=== PATIENT | male | born 1970 | race Caucasian/White ===

== ENCOUNTER 2024-09-07 04:00 | Observation (INO) ==
--- NOTE | 2024-09-07 04:12 | ED Physician Documentation ---
History of Present Illness Stated complaint Stated Complaint: DIZZY Chief complaint Chief Complaint: Neuro History obtained from History obtained from: Patient Additonal information Additional information: 54yM with recent right ankle fracture p/w lightheadedness tonight while at rest lying in bed. patient woke and then at 2:54 am developed ringing in ears, lightheadedness and started sweating. he called 911 and upon ems arrival the symptoms had resolved. patient was found to be hypotensive with bp 79/50. He received 750cc ivf en route. patient states he started hctz and lisinopril for high bp a couple months ago. he normally takes adderall but has not been taking this week. he started taking oxycodone this week for pain for his ankle. he took oxy at 8pm and 2am. denies fever, chills, n/v/d, abdominal pain, cp, soa, fnd. Collateral info obtained from [place]: Patient has hx panic attacks and anxiety. He was in his workshop at their home several days ago and had an unwitnessed episode of which he does not remember, but ended up on the floor with a broken and dislocated ankle. he was seen at outside hospital but did not have bloodwork done. states he only had traumatic workup for ankle fracture. Meds/Allgy Home Medications Ambulatory Orders Medication Instructions Recorded Confirmed atorvastatin 10 mg tablet (Lipitor) 10 mg PO QDAY #30 tabs 06/26/24 06/26/24 clonidine HCl 0.1 mg tablet 0.3 mg (3 x 0.1 mg) PO QPM #90 tabs 06/26/24 06/26/24 hydroxyzine pamoate 25 mg capsule 25 - 50 mg (1 - 2 x 25 mg) PO BID 06/26/24 06/26/24 (Vistaril) PRN anxiety, itching, and/or insomnia #120 caps propranolol 10 mg tablet 10 mg PO TID PRN anxiety, racing 06/26/24 06/26/24 heart, social situations #90 tabs lisinopril 20 1 tab PO QDAY #30 tabs 08/06/24 08/06/24 mg-hydrochlorothiazide 12.5 mg tablet dextroamphetamine-amphetamine 5 mg 5 mg PO BID #30 tabs 08/28/24 tablet Allergies Allergies Allergy/AdvReac Type Severity Reaction Status Date / Time No Known Drug Allergies Allergy Verified 09/07/24 04:14 PFSH Active Problems All Active Problems (Updated 09/07/24 @ 04:18 by Natalia Vences MD) Dizziness (Acute) Encounter for long-term current use of medication (Acute) Hypercholesterolemia (Acute) Hypertension (Acute) ADHD (attention deficit hyperactivity disorder), combined type (Acute) Generalized anxiety disorder with panic attacks (Acute) Family History Family History (Updated 09/07/24 @ 06:47 by Nimo Hill RN) Brother Sudden cardiac arrest Paternal grandfather Sudden cardiac arrest Social History Social History Smoking Status: Former smoker Do you vape?: No Patient requests smoking cessation consult: No Living arrangement: At home Marital Status: Living Condition: With spouse/s.o. Support Person: Yes Relationship: Level: Independent Do you feel safe in your home environment?: Yes Suffered physical, verbal, emotional, or financial abuse?: No History of Abuse: No Frequency: Weekly (3-4x/wk) Substance Use: cannabis (any form) Retired: No Are you following a diet prescribed by a doctor: No Are you following a special diet: No Exam Constitutional normal general appearance, no apparent distress and average body habitus HENMT normocephalic and head/scalp atraumatic Eyes PERRL Chest inspection of chest normal Respiratory breath sounds equal bilaterally, normal respiratory effort and clear to auscultation bilaterally Cardiovascular normal heart rate noted and regular rhythm noted Gastrointestinal abdomen normal to inspection, abdomen soft to palpation and nontender to palpation Genitourinary no CVA tenderness Extremities normal to inspection Neurology GCS 15 Psychiatry mental status grossly normal Skin skin color normal Results Vitals Vitals: Vital Signs - 24 hr 09/07/24 04:06 09/07/24 04:09 09/07/24 04:14 Temperature 36.2 C L 36.2 C L Temperature Source Tympanic Pulse Rate 86 77 Pulse Rate [Sitting] Pulse Rate [Standing] Pulse Rate [Supine] Respiratory Rate 16 16 Blood Pressure 134/87 H 138/87 H Blood Pressure [Sitting] Blood Pressure [Standing] Blood Pressure [Supine] O2 Saturation 99 98 O2 Source Room air Room air Pain Intensity 0 0 09/07/24 04:17 09/07/24 05:39 09/07/24 05:47 Temperature Temperature Source Pulse Rate 69 68 Pulse Rate [Sitting] 78 Pulse Rate [Standing] 96 Pulse Rate [Supine] 77 Respiratory Rate 16 20 Blood Pressure 116/75 101/73 Blood Pressure [Sitting] 128/87 Blood Pressure [Standing] 134/87 H Blood Pressure [Supine] 138/89 H O2 Saturation 97 96 O2 Source Room air Room air Pain Intensity 09/07/24 06:42 Temperature Temperature Source Pulse Rate 75 Pulse Rate [Sitting] Pulse Rate [Standing] Pulse Rate [Supine] Respiratory Rate 16 Blood Pressure 107/69 Blood Pressure [Sitting] Blood Pressure [Standing] Blood Pressure [Supine] O2 Saturation 98 O2 Source Room air Pain Intensity Oxygen O2 Source Room air EKG (time done) 0428: EKG releavant findings:: EKG personally interpreted by author of this note. Relevant findings are: Rate: Rate (enter#) (77) Rhythm: NSR [place]: Normal Intervals: Normal [place] QRS: QRS normal Ischemia: Normal ST segments Other comments: Other comments (Q waves inferior leads) 0547: EKG releavant findings:: EKG personally interpreted by author of this note. Relevant findings are: Rate: Rate (enter#) (72) Rhythm: NSR [place]: LAD Intervals: Normal [place] QRS: QRS normal Ischemia: Normal ST segments Labs Labs: Laboratory Tests 09/07/24 09/07/24 09/07/24 05:16 05:45 05:57 WBC 11.3 H RBC 5.12 Hgb 14.4 Hct 42.7 MCV 83.4 MCH 28.1 MCHC 33.7 RDW 13.5 Plt Count 265 MPV 10.0 Neut # (Auto) 9.8 H Lymph # (Auto) 0.8 L [place] # (Auto) 0.5 Eos # (Auto) 0.1 Baso # (Auto) 0.0 Absolute Nucleated RBC 0.00 Nucleated RBC % 0.0 Sodium 134 L Potassium 4.0 Chloride 102 Carbon Dioxide 27 Anion Gap 5.0 L BUN 21 H Creatinine 1.1 Estimated GFR (MDRD) 70 L Glucose 136 H POC Whole Bld Glucose 134 Calcium 8.3 L Magnesium 1.9 Total Bilirubin 0.6 AST 12 ALT 14 Alkaline Phosphatase 56 Ammonia 21.2 Troponin I High Sens 4.0 Total Protein 6.6 Albumin 3.7 Globulin 2.9 Albumin/Globulin Ratio 1.3 Lipase 23 TSH 1.33 Salicylates < 1.5 Acetaminophen 0.4 Ethyl Alcohol < 10.0 PD Medical Decision Making ED course ED course: 54yM with pmh ankle fracture p/w dizziness, found to be hypotensive in the field. ivf provided with improvement. plan to assess cxr, ekg, labwork and reevaluate. Note that patient had brief episode of unresponsiveness witnessed by around 5:40am. he had no acute events on the manager monitoring and BP and fingerstick glucose was normal at that time. staff respiratory therapist witnessed the latter part of the episode, with patient repeatedly gazing from left to right and then after a moment reposnding clearly with his name, and able to recount his location and the year. CT head, additional tox labs, ammonia level were added on. add on tests were negative for pathology. Note that patient states he has family history of sudden in brother and paternal grandfather in 40s. patient endorsed to Dr. Godinez at 7am shift change. Discharge Plan Discharge Condition: Fair Clinical Impression: Dizziness Prescriptions: No Action dextroamphetamine-amphetamine 5 mg tablet 5 mg PO BID Qty: 30 0RF Rx Instructions: Take in the morning and midday. Avoid taking within 8hrs of bedtime, try to administer doses approx. 4-6 hours apart. Missed dose/s okay. propranolol 10 mg tablet 10 mg PO TID PRN (Reason: anxiety, racing heart, social situations ) Qty: 90 2RF hydroxyzine pamoate [Vistaril] 25 mg capsule 25 - 50 mg PO BID PRN (Reason: anxiety, itching, and/or insomnia ) Qty: 120 2RF atorvastatin [Lipitor] 10 mg tablet 10 mg PO QDAY Qty: 30 2RF clonidine HCl 0.1 mg tablet 0.3 mg PO QPM Qty: 90 2RF lisinopril-hydrochlorothiazide 20-12.5 mg tablet 1 tab PO QDAY Qty: 30 2RF Print Language: Divehi Stand Alone Forms: PCP List
[2024-09-07] MEDS: SODIUM CHLORIDE 0.9% 1,000 ML IV STA (04:21)
[2024-09-07 05:32] LABS: BASOPHILS % (AUTO) 0.2 %; EOSINOPHILS # (AUTO) 0.1 10^3/uL (0.0-0.7); EOSINOPHILS % (AUTO) 0.4 %; HCT - HEMATOCRIT 42.7 % (42.0-52.0); HGB - HEMOGLOBIN 14.4 g/dL (14.0-18.0); LYMPHOCYTES # (AUTO) 0.8 10^3/uL (1.5-3.5); LYMPHOCYTES % (AUTO) 7.5 %; MEAN CORPUSCULAR HEMOGLOBIN 28.1 pg (27.0-31.0); MEAN CORPUSCULAR HGB CONC 33.7 g/dL (32.0-36.0); MEAN CORPUSCULAR VOLUME 83.4 fL (80.0-94.0); MONOCYTES # (AUTO) 0.5 10^3/uL (0.0-1.0); MONOCYTES % (AUTO) 4.8 %; NEUTROPHILS # (AUTO) 9.8 10^3/uL (1.5-6.6); NEUTROPHILS % (AUTO) 86.7 %; PLT - PLATELET COUNT 265 10^3/uL (130-450); RED BLOOD COUNT 5.12 10^6/uL (4.70-6.10); RED CELL DISTRIBUTION WIDTH 13.5 % (12.0-15.0); WHITE BLOOD COUNT 11.3 x10^3/uL (4.8-10.8)
[2024-09-07 05:49] LABS: ALBUMIN 3.7 g/dL (3.2-5.5); ALBUMIN/GLOBULIN RATIO 1.3 (1.0-2.2); BILIRUBIN,TOTAL 0.6 mg/dL (0.2-1.0); CALCIUM 8.3 mg/dL (8.5-10.3); CREATININE 1.1 mg/dL (0.6-1.3); TOTAL PROTEIN 6.6 g/dL (6.4-8.9)
[2024-09-07 06:12] LABS: ACETAMINOPHEN 0.4 ug/mL; ETOH - ETHANOL < 10.0 mg/dL
[2024-09-07 06:14] LABS: SALICYLATE < 1.5 mg/dL
[2024-09-07 06:22] LABS: THYROID STIMULATING HORMONE 1.33 uIU/mL (0.34-5.60)
--- NOTE | 2024-09-07 07:08 | ED Physician Documentation ---
ED Addendum Addendum Addendum: Care from overnight emergency physician at 7 AM shift change. Briefly this is a 54-year-old gentleman with history of hypotension who has had 3 episodes now of syncope and is being worked up for that with family history of sudden cardiac , had an episode here and we reviewed the rhythm strips. There is artifact but the QRSs march out evenly. Chest x-ray per teleradiology was negative, CT head was negative except for findings of sinusitis. I spoke with Dr. Pacheco at about 745 for observation, these episodes are quite concerning especially since he broke his ankle during one of them and does not recollect it. He requested that we talk with cardiology prior to admission. At 8 AM I spoke with Dr. Mera at [facility] who feels it is likely orthostatic given that he has had some low-raghavendra blood pressures here (as low as 101/70). And recommends observation for echo, potentially a chemical stress test (he does have a broken ankle) and optimization of his blood pressures. Further discussion with patient, he had just started HCTZ about a month or 2 ago (prior to that was on lisinopril/clonidine and the HCTZ was added). And it was noted that his blood pressure for EMS last night was about 70/50 so orthostasis is certainly possible. Spoke with Dr. Pacheco again at 8:10 AM for observation. Discharge Plan Discharge Patient Disposition: ED Place in Observation Condition: Fair Clinical Impression: Dizziness, Syncope Prescriptions: No Action dextroamphetamine-amphetamine 5 mg tablet 5 mg PO BID Qty: 30 0RF Rx Instructions: Take in the morning and midday. Avoid taking within 8hrs of bedtime, try to administer doses approx. 4-6 hours apart. Missed dose/s okay. propranolol 10 mg tablet 10 mg PO TID PRN (Reason: anxiety, racing heart, social situations ) Qty: 90 2RF hydroxyzine pamoate [Vistaril] 25 mg capsule 25 - 50 mg PO BID PRN (Reason: anxiety, itching, and/or insomnia ) Qty: 120 2RF atorvastatin [Lipitor] 10 mg tablet 10 mg PO QDAY Qty: 30 2RF clonidine HCl 0.1 mg tablet 0.3 mg PO QPM Qty: 90 2RF lisinopril-hydrochlorothiazide 20-12.5 mg tablet 1 tab PO QDAY Qty: 30 2RF Print Language: [place] Stand Alone Forms: PCP List
--- NOTE | 2024-09-07 08:29 | XRAY Report ---
PROCEDURE: XR Chest 1V INDICATIONS: dizziness TECHNIQUE: One view of the chest was acquired. COMPARISON: None. FINDINGS: Surgical changes and devices: None. Lungs and pleura: No pleural effusions or pneumothorax. No consolidation. Mediastinum: Mediastinal contours appear normal. Heart size is normal. Bones and chest wall: No suspicious bony lesions. Overlying soft tissues appear unremarkable. IMPRESSION: No acute cardiopulmonary process. Findings are concordant with preliminary interpretation provided by [facility]. Reviewed by: Luis Flood MD on 09/07/2024 8:28 AM PDT Approved by: Luis Flood MD on 09/07/2024 8:28 AM PDT Station ID: [id number]
--- NOTE | 2024-09-07 08:29 | CT Report ---
PROCEDURE: CT Head WO INDICATIONS: ams, intermittent spells, possible fainting episod TECHNIQUE: Noncontrast 4.5 mm thick angled axial sections acquired from the foramen magnum to the vertex. For r adiation dose reduction, the following was used: automated exposure control, adjustment of mA and/or kV according to patient size. COMPARISON: None. FINDINGS: Image quality: Excellent. CSF spaces: Basal cisterns are patent. No extra-axial fluid collections. Ventricles are normal in size and shape. Brain: No midline shift. No intracranial masses or hemorrhage. Fung-white matter interface is norm al. Skull and face: Calvarium and visualized facial bones are intact, without suspicious lesions. Sinuses: Visualized sinuses and mastoids are clear. IMPRESSION: No acute intracranial pathology. Findings are concordant with preliminary interpretation provided by [facility]. Reviewed by: Luis Flood MD on 09/07/2024 8:28 AM PDT Approved by: Luis Flood MD on 09/07/2024 8:28 AM PDT Station ID: [id number]
[2024-09-07] MEDS ORDERED: ONDANSETRON ODT 4 MG TABLET TL PRN (10:54)
[2024-09-07] MEDS ORDERED: SODIUM CHLORIDE FLUSH 0.9% 10 ML SYRINGE IVP PRN (10:54)
--- NOTE | 2024-09-07 11:07 | HISTORY & PHYSICAL EXAMINATION ---
<Statement entered by Vick Pacheco MD - 09/07/24 16:35> I saw the patient independently of the physician medicine assistant student below and agree with the assessment and plan with the following addition. Upon auscultating his lungs I noticed a concerning mole on his back between the scapula at the upper thoracic lower cervical region. I pointed this out to both the patient and his and asked the to take a photograph and try to get into see a drop forge operator. It has some atypical findings that I find might be concerning enough to have biopsied. Patient and his confirmed that they will try to get into a drop forge operator as soon as possible or have his PCP address it with the biopsy if they agree. Chief Complaint Chief Complaint Chief Complaint: Syncopal episodes History of Present Illness Admitted From Admitted From:: ER History Obtained From Records Reviewed: ER and behavioral health notes. History obtained from: Patient and his . History of Present Illness HPI Comment/Other: 54 yo male w/ PMH of HTN, anxiety w/ panic attacks, ADHD, and hypercholesterolemia. His FMH is significant for sudden cardiac (uncle and brother) The first episode he had was one month ago, at which time he was sitting in a chair and saw the warp-speed lights from [place], heard a loud but dull noise, and then was incredibly dizzy/ off balance. Second episode on 09/02 was unwitnessed as he walked from the garage to the house. He says the first change was a loud noise in his ears, then he lost control of his body,and gained awareness a few minutes later on the ground. Seen at outside hospital for work up of sustained ankle fracture and dislocation, but not the cause of the episode. Presented to the ER after third episode occurred around 3AM last night. Describes the events as starting with a very loud pink noise, then a loss of equilibrium, inability to talk or move, and diaphoresis. This occurred while he was laying supine in bed on his phone after having gotten up to take his pain medications. His witnessed the episode that just occurred in the ER and reports diaphoresis, unresponsiveness, and nystagmus. Blood glucose and BP were normal and no acute event was seen on cardiac cath tech. Work up in the ER was unremarkable, including CT head, CXR, troponin, BMP, ETOH, and ASA. WBC were mildly elevated. Orthostatic vitals were unremarkable. Vitals since arrival show variable BP. He was started on IVF. After each episode, the patient is alert and oriented without any focal deficits, but usually struggles to remember much of the episode. He says he has a history of anxiety with panic attacks but has not had an attack in 5-6 months and sees behavioral health regularly. 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 He was switched to lisinopril-HCTZ last month because his BP was still uncontrolled and this helped to lower it but he has only been taking the lisinopril over the last 10 days. He smokes marijuanna daily and drinks 1-2 beers most nights but has not drank in 10 days. He has stopped caffeine completely. There is no history of dyspnea on exertion, recent infection or travel, or past cardiac event. He denies chest pain, palpitations, shortness of breath, headaches, fever, chills, vision changes, weight loss, dehydration, jaw/temporal pain, or claudication. Meds/Allgy Home Medications Ambulatory Orders Medication Instructions Recorded Confirmed atorvastatin 10 mg tablet (Lipitor) 10 mg PO QDAY #30 tabs 06/26/24 09/07/24 clonidine HCl 0.1 mg tablet 0.3 mg (3 x 0.1 mg) PO QPM #90 tabs 06/26/24 09/07/24 hydroxyzine pamoate 25 mg capsule 25 - 50 mg (1 - 2 x 25 mg) PO BID 06/26/24 09/07/24 (Vistaril) PRN anxiety, itching, and/or insomnia #120 caps propranolol 10 mg tablet 10 mg PO TID PRN anxiety, racing 06/26/24 09/07/24 heart, social situations #90 tabs lisinopril 20 1 tab PO QDAY #30 tabs 08/06/24 09/07/24 mg-hydrochlorothiazide 12.5 mg tablet oxycodone 5 mg tablet 5 mg PO ONCE 09/07/24 09/07/24 Allergies Allergies Allergy/AdvReac Type Severity Reaction Status Date / Time No Known Drug Allergies Allergy Verified 09/07/24 04:14 PFSH Active Problems All Active Problems (Updated 09/07/24 @ 12:11 by Milagros Barroso) Syncope (Acute) Dizziness (Acute) Encounter for long-term current use of medication (Acute) Hypercholesterolemia (Acute) Hypertension (Acute) ADHD (attention deficit hyperactivity disorder), combined type (Acute) Generalized anxiety disorder with panic attacks (Acute) Family History Family History Brother Sudden cardiac arrest Paternal grandfather Sudden cardiac arrest Social History Social History Smoking Status: Former smoker If you are a former smoker, when did you quit? (Date/Year): 2017 Number of Years Smoked: 16 Do you dip or chew tobacco?: No Do you vape?: No Patient requests smoking cessation consult: No Living arrangement: At home Marital Status: Living Condition: With spouse/s.o. Support Person: Yes Relationship: Level: Independent Home Mobility Equipment: Wheeled walker and Crutches Do you feel safe in your home environment?: Yes Suffered physical, verbal, emotional, or financial abuse?: No History of Abuse: No Frequency: Weekly (3-4x/wk) Substance Use: cannabis (any form) Retired: No Are you following a diet prescribed by a doctor: No Are you following a special diet: No POLST Patient has POLST: No Review of Systems Status of ROS: 10 or more systems reviewed and unremarkable except as noted in history and below Constitutional Reports: Diaphoresis Eyes Reports: Change in vision Ears, nose, mouth, and throat Reports: Vertigo Cardiovascular Reports: Syncope Musculoskeletal Reports: Extremity pain (Right ankle) Neurological Reports: Lack of coordination, Dizziness, Vertigo and Seizure-like activity Psychiatric Reports: Anxiety Exam Constitutional normal general appearance mildly anxious HENMT normocephalic, head/scalp atraumatic, hearing grossly normal bilaterally, external ears normal, external nose normal and oropharynx normal Eyes PERRL, EOMs intact bilaterally, conjunctivae normal and no scleral icterus Bilateral horizontal nystagmus. Neck/C-Spine trachea midline, cervical spine nontender, cervical full ROM noted, supple and no carotid bruits Lymph no lymphadenopathy noted and no lymphedema noted Chest palpation of chest normal Respiratory breath sounds equal bilaterally, normal respiratory effort, clear to auscultation bilaterally, no wheezes, no rales, no retractions and no use of accessory muscles Cardiovascular normal heart rate noted, regular rhythm noted, no gallop, no rub, no murmur, no JVD, peripheral pulses 2+ throughout, no bruits noted, no additional abnormal heart sounds and no edema Gastrointestinal abdomen normal to inspection, abdomen soft to palpation, nontender to palpation, nondistended and normoactive bowel sounds Genitourinary bladder normal to palpation Extremities normal to inspection, normal to palpation, no tenderness and full ROM Unable to view right ankle due to splint/wrap. Neurology data analyst etl developer II-XII intact, no movement abnormality noted, no focal motor deficit noted, no sensory deficits noted, speech normal, coordination normal, no fasciculations noted and GCS 15 Psychiatry mental status grossly normal, oriented x3, thought process normal, cooperative, affect normal, psychomotor activity normal and memory normal Skin skin color normal, no rash, no lesions and no jaundice Conclusion/Plan Problem List (1) Syncope: Plan: Initial workup in the ER was unremarkable for a possible cause. With family hx of sudden cardiac , variable BP, hypercholesterolemia, and smoking history, there could be a cardiac cause of his episodes. Prior to admission, Dr. Godinez in the ER consulted Dr. Mera at [facility] who feels the cause is likely orthostatic since his BP drops to as low as 100/70. Dr. Mera recommends observation for echo, possibly a chemical stress test, and optimization of his BP. With the increased stressors in his life, we will also consider if these are anxiety related episodes. * Order echo * Hold home medications to observe his baseline BP * Continue to monitor vitals * Order oxycodone 5mg PRN for his ankle pain * Pursue a sooner f/u with new PCP after discharge * Consider cardiology referral Qualifiers: Syncope type: unspecified Qualified Code(s): R55 - Syncope and collapse (2) Hypertension: Plan: * Hold home medications to establish a baseline * Monitor BP to track variability * Discussed lifestyle changes including exercise, diet, and stress management to possibly eliminate the need for BP medications. * Recommend stopping clonidine Qualifiers: Hypertension type: primary hypertension Qualified Code(s): I10 - Essential (primary) hypertension (3) Generalized anxiety disorder with panic attacks: Plan: * He recently did a trial of Adderall which can impact BP, however, he had a syncopal episode prior to and after this trial so it is unlikely this is the cause. But still consider it to be a factor. * Clonidine can also impact BP and often causes fluctuations, including a rebound effect once stopped. Would suggest that a different medication be considered in the future. * Restart his hydroxyzine PRN * Discussed lifestyle changes and the options available for home health or other assistance for his fathers medical care. Lab Results Lab results reviewed: Yes 09/07/24 05:16 09/07/24 05:16 Diagnostic Imaging Results Diagnostic Imaging Results: positive Final report reviewed Diagnostic Imaging Results Comments: CXR: No acute cardiopulmonary process. Heart size is normal. CT Head: No acute intracranial pathology. EKG Results EKG Comparison: No prior EKG EKG Findings: Initial EKG: NSR Post-episode EKG: NSR w/ LAD Core Measures Anticipated LOS I expect patient to be DC'd or transferred within 96 hours.: Yes Issues Hospital Issues and Management Plan: Admit for observation and cardiac work up. DVT/VTE - Prophylaxis VTE/DVT Device ordered at admit?: Yes VTE/DVT Prophylaxis med ordered at admit?: No Stroke - Rehab Assessment Rehab services assessment to be ordered?: No AMI - Statin at Admit Aspirin Prescribed on Admit: No
--- NOTE | 2024-09-07 12:44 | PHARMACY PROGRESS NOTE ---
Best Possible Medication History Admit Date and Time: 09/07/24 [id number] Home Medications Medication Instructions Recorded Confirmed Type atorvastatin 10 mg tablet (Lipitor) 10 mg PO QDAY #30 tabs 06/26/24 09/07/24 Rx clonidine HCl 0.1 mg tablet 0.3 mg (3 x 0.1 mg) PO QPM #90 tabs 06/26/24 09/07/24 Rx hydroxyzine pamoate 25 mg capsule 25 - 50 mg (1 - 2 x 25 mg) PO BID 06/26/24 09/07/24 Rx (Vistaril) PRN anxiety, itching, and/or insomnia #120 caps propranolol 10 mg tablet 10 mg PO TID PRN anxiety, racing 06/26/24 09/07/24 Rx heart, social situations #90 tabs lisinopril 20 1 tab PO QDAY #30 tabs 08/06/24 09/07/24 Rx mg-hydrochlorothiazide 12.5 mg tablet oxycodone 5 mg tablet 5 mg PO ONCE 09/07/24 09/07/24 History Processed by: Pharmacy Medications reviewed in ED?: No Medication History completed: Yes Patient Interview: Completed Secondary Source(s): Other family member and Insurance records BPM Statement: Per patient interview with pharmacist and review of [employer] records. As the person ultimately responsible for medication therapy, providers are able to order a medication from an existing home medication list in [facility] via the "Reconcile Routine" prior to Confirmation of that medication by account support analyst. Such practice is discouraged except when the physician, in their clinical judgment, deems that a medical need exists for a medication without regard to previous use.
[2024-09-07] MEDS: ACETAMINOPHEN 325 MG TABLET PO PRN (14:30)
[2024-09-07 14:32] LABS: AMPHETAMINE SCREEN,URINE NEGATIVE (NEGATIVE); BARBITURATE SCREEN,UR NEGATIVE (NEGATIVE); BENZODIAZEPINES SCREEN, URINE NEGATIVE (NEGATIVE); BUPRENORPHINE SCREEN, URINE NEGATIVE (NEGATIVE); COCAINE SCREEN URINE NEGATIVE (NEGATIVE); METHADONE SCREEN, URINE NEGATIVE (NEGATIVE); METHAMPHETAMINES SCREEN, URINE NEGATIVE (NEGATIVE); OPIATE SCREEN, URINE NEGATIVE (NEGATIVE); OXYCODONE SCREEN, URINE POSITIVE (NEGATIVE); THC CANNABINOID SCREEN, URINE POSITIVE (NEGATIVE); TRICYCLIC ANTIDEPRESSANT,URINE NEGATIVE (NEGATIVE)
[2024-09-07] MEDS: oxyCODONE 5 MG TABLET PO PRN (21:02)
[2024-09-07] MEDS: hydrOXYzine PAMOATE 25 MG CAPSULE PO PRN (21:02)
[2024-09-07] MEDS: SODIUM CHLORIDE FLUSH 0.9% 10 ML SYRINGE IVP SCH (21:03)
[2024-09-08 15:22] LABS: HCT - HEMATOCRIT 44.7 % (42.0-52.0); HGB - HEMOGLOBIN 14.9 g/dL (14.0-18.0); MEAN CORPUSCULAR HEMOGLOBIN 27.6 pg (27.0-31.0); MEAN CORPUSCULAR HGB CONC 33.3 g/dL (32.0-36.0); MEAN CORPUSCULAR VOLUME 82.8 fL (80.0-94.0); MEAN PLATELET VOLUME 9.8 fL (7.4-11.4); RED BLOOD COUNT 5.4 10^6/uL (4.70-6.10); RED CELL DISTRIBUTION WIDTH 13.5 % (12.0-15.0); WHITE BLOOD COUNT 7.8 x10^3/uL (4.8-10.8)
[2024-09-08 15:35] LABS: CALCIUM 9.2 mg/dL (8.5-10.3); CREATININE 0.9 mg/dL (0.6-1.3); POTASSIUM 3.4 mmol/L (3.5-4.5)
[2024-09-08 17:11] VITALS: BP 162/102; TEMP 98.8; O2SAT 95
--- NOTE | 2024-09-08 17:22 | Discharge Summary ---
Discharge Summary Admit Date: 09/07/24 Discharge Date: 09/08/24 Discharging Provider: Lenin Fernandes MD Primary Care Provider: Julissa Laguerre PA-C Code Status: Attempt Resuscitation DIAGNOSES Admission Diagnoses: 1. Syncope 2. Hypertension 3. Anxiety Discharge Diagnoses with Status of Each Condition: 1. Syncope -- acute, stable; 2. Hypertension -- chronic, stable 3. Anxiety -- chronic, stable HPI History of Present Illness: 54 yo male w/ PMH of HTN, anxiety w/ panic attacks, ADHD, and hypercholesterolemia. His FMH is significant for sudden cardiac (uncle and brother) The first episode he had was one month ago, at which time he was sitting in a chair and saw the warp-speed lights from [employer], heard a loud but dull noise, and then was incredibly dizzy/ off balance. Second episode on 09/02 was unwitnessed as he walked from the garage to the house. He says the first change was a loud noise in his ears, then he lost control of his body,and gained awareness a few minutes later on the ground. Seen at outside hospital for work up of sustained ankle fracture and dislocation, but not the cause of the episode. Presented to the ER after third episode occurred around 3AM last night. Describes the events as starting with a very loud pink noise, then a loss of equilibrium, inability to talk or move, and diaphoresis. This occurred while he was laying supine in bed on his phone after having gotten up to take his pain medications. His witnessed the episode that just occurred in the ER and reports diaphoresis, unresponsiveness, and nystagmus. 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 Work up in the ER was unremarkable, including CT head, CXR, troponin, BMP, ETOH, and ASA. WBC were mildly elevated. Orthostatic vitals were unremarkable. Vitals since arrival show variable BP. He was started on IVF. After each episode, the patient is alert and oriented without any focal deficits, but usually struggles to remember much of the episode. He says he has a history of anxiety with panic attacks but has not had an attack in 5-6 months and sees behavioral health regularly. 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 He was switched to lisinopril-HCTZ last month because his BP was still uncontrolled and this helped to lower it but he has only been taking the lisinopril over the last 10 days. He smokes marijuanna daily and drinks 1-2 beers most nights but has not drank in 10 days. He has stopped caffeine completely. There is no history of dyspnea on exertion, recent infection or travel, or past cardiac event. He denies chest pain, palpitations, shortness of breath, headaches, fever, chills, vision changes, weight loss, dehydration, jaw/temporal pain, or claudication. HOSPITAL COURSE Hospital Course: (1) Syncope Discharge: Home medications for discharge * Atorvastatin 10 mg PO daily * Hydroxyzine 25-50 mg PO BID PRN * Propanolol 10 mg PO TID PRN * Oxycodone 5 mg PO BID PRN Plan * Hold home medications, clonidine and lisinopril-HCTZ, until PCP visit. * Recommend continued BP checks and recording so PCP can see the variability from discharge to establish care visit. * Arranged PCP visit for 09/17/24-- meet w/ surgeon after PCP to reassess scheduling his ankle surgery * Echo did not show any valvular abnormalities. However, other abnormalities cannot be adequately assessed based on this ECHO. As such, we recommend he get cardiac clearance prior to surgery for his ankle. Recommend setting up an appointment with a tab cutter. Tried speaking with cardiology office (Dr. Mera) but were unable to set up appointment as needs referral from PCP. 09/07 Initial workup in the ER was unremarkable for a possible cause. With family hx of sudden cardiac , variable BP, hypercholesterolemia, and smoking history, there could be a cardiac cause of his episodes. Prior to admission, Dr. Godinez in the ER consulted Dr. Mera at [facility] who feels the cause is likely orthostatic since his BP drops to as low as 100/70. Dr. Mera recommends observation for echo, possibly a chemical stress test, and optimization of his BP. With the increased stressors in his life, we will also consider if these are anxiety related episodes. * Order echo * Hold home medications to observe his baseline BP * Continue to monitor vitals * Order oxycodone 5mg PRN for his ankle pain * Pursue a sooner f/u with new PCP after discharge * Consider cardiology referral (2) Hypertension Discharge: * Since admission he has not had any blood pressure medication * Record BP at home and reevaluate need for medication w/ PCP -- Recommend if blood pressure is systolic greater than 180, please restart his lisinopril only. * His BP has ranged from 121-162 systolic and 81-104 diastolic * Still think the best course of action for him will be to manage his stress and implement lifestyle and behavioral changes. 09/07 * Hold home medications to establish a baseline * Monitor BP to track variability * Discussed lifestyle changes including exercise, diet, and stress management to possibly eliminate the need for BP medications. * Recommend stopping clonidine (3) Anxiety Discharge: * Hydroxyzine was provided to help him sleep. * Continue regular f/u with behavioral health * Implement lifestyle and behavioral changes. * Scheduled PCP visit for 09/17/2409/07 * He recently did a trial of Adderall which can impact BP, however, he had a syncopal episode prior to and after this trial so it is unlikely this is the cause. But still consider it to be a factor. * Clonidine can also impact BP and often causes fluctuations, including a rebound effect once stopped. Would suggest that a different medication be considered in the future. * Restart his hydroxyzine PRN * Discussed lifestyle changes and the options available for home health or other assistance for his fathers medical care. ALLERGIES Allergies Allergy/AdvReac Type Severity Reaction Status Date / Time No Known Drug Allergies Allergy Verified 09/07/24 04:14 MEDICATIONS Ambulatory Orders Medication Instructions Recorded Confirmed atorvastatin 10 mg tablet (Lipitor) 10 mg PO QDAY #30 tabs 06/26/24 09/07/24 clonidine HCl 0.1 mg tablet 0.3 mg (3 x 0.1 mg) PO QPM #90 tabs 06/26/24 09/07/24 hydroxyzine pamoate 25 mg capsule 25 - 50 mg (1 - 2 x 25 mg) PO BID 06/26/24 09/07/24 (Vistaril) PRN anxiety, itching, and/or insomnia #120 caps propranolol 10 mg tablet 10 mg PO TID PRN anxiety, racing 06/26/24 09/07/24 heart, social situations #90 tabs lisinopril 20 1 tab PO QDAY #30 tabs 08/06/24 09/07/24 mg-hydrochlorothiazide 12.5 mg tablet oxycodone 5 mg tablet 5 mg PO ONCE 09/07/24 09/07/24 oxycodone 5 mg tablet 5 mg PO BID PRN pain #7 tabs 09/08/24 PHYSICAL EXAM AT DISCHARGE General Appearance: positive No acute distress and Alert Eyes Bilateral: positive Normal inspection, PERRL, EOMI, No lid inflammation, Conjunctivae nml and No scleral icterus ENT: positive ENT inspection nml Neck: positive Nml inspection, No JVD and Trachea midline Respiratory: positive Chest non-tender, No respiratory distress and Breath sounds nml; negative Wheezes, Rales or Rhonchi Cardiovascular: positive Regular rate & rhythm, No murmur and No gallop Peripheral Pulses: positive 2+ Abdomen: positive Non-tender, No organomegaly, Nml bowel sounds and No distention Back: positive Nml inspection (Mole located between scapula at the upper thoracic lower cervical region) Skin: positive Color nml, No rash, Warm and Dry Extremities: positive Non-tender, Full ROM, Nml appearance (Splint & wrap on right ankle still in place. ) and No pedal edema Neurologic/Psychiatric: positive Oriented x3, CN's nml (2-12), Motor nml, Sensation nml and Mood/affect nml LABS 09/08/24 15:09 09/08/24 15:09 DIAGNOSTIC IMAGING Diagnostic Imaging Results: Final report reviewed Diagnostic Imaging Results Comments: 09/08 Echocardiogram * Mil asymmetric septal LVH w/o outflow obstruction. Normal systolic function, EF 55%. Focal wall motion abnormalities cannot be excluded d/t image quality. * The left atrium is normal in size * Normal valve function throughout * Normal right ventricular size and function * Mildly dilated ascending aorta, 3.9 cm FOLLOW UP Follow Up: Establish care w/ PCP Julissa Parker PA-C on 09/17/24 Follow up with cardiology. Consider neurology referral. TIME SPENT Time Spent in Discharge (Minutes): 35 Discharge Plan Discharge Patient Disposition: Home, Self Care Condition: Fair Prescriptions: New oxycodone 5 mg tablet 5 mg PO BID PRN (Reason: pain) Qty: 7 0RF Continued oxycodone 5 mg tablet 5 mg PO ONCE Patient Comments: TAKE 1 TABLET BY MOUTH EVERY 6 HOURS NEEDED FOR PAIN, pt states takes one tablet only at bedtime daily propranolol 10 mg tablet 10 mg PO TID PRN (Reason: anxiety, racing heart, social situations ) Qty: 90 2RF hydroxyzine pamoate [Vistaril] 25 mg capsule 25 - 50 mg PO BID PRN (Reason: anxiety, itching, and/or insomnia ) Qty: 120 2RF atorvastatin [Lipitor] 10 mg tablet 10 mg PO QDAY Qty: 30 2RF Held clonidine HCl 0.1 mg tablet 0.3 mg PO QPM Qty: 90 2RF Hold Instructions: Resume on 09/15/24. Please follow up with PCP and restart when they say so. lisinopril-hydrochlorothiazide 20-12.5 mg tablet 1 tab PO QDAY Qty: 30 2RF Hold Instructions: Resume on 09/17/24. Please follow up with PCP and restart when they say so. Diet: Regular Interventions: Belongings Inventory Last Done: 09/07/24 11:16 Health Concerns: You came in after you had an episode where you almost passed out, which resulted in you breaking your ankle. You have had a few of these in the last year. Of note, some medications that are new to you are some of your blood pressure medications. We talked about holding these at this time as your blood pressure was low when you first got here. Please recheck daily, and bring in your blood pressure log to your primary care provider appointment. If your blood pressure is systolic greater than 180, please restart your lisinopril only. When you first came to the emergency room, the emergency physician spoke with a tab cutter, Dr. Mera, who recommended an ultrasound of your heart. We did complete this. You do not have any valvular abnormalities. However, other abnormalities cannot be adequately assessed based on this ECHO, or ultrasound of your heart. As such, I would like you to get cardiac clearance prior to surgery for your ankle. This means setting up an appointment with a tab cutter. You have a follow-up appointment with your primary care provider scheduled for 09/17, at 9:15 AM. I will send a message regarding the above. I have also attached contact information for Dr. Mera; I am hoping you will be able to see him in the next week or 2 to obtain this cardiac clearance. I spoke with your surgical center, they will be calling you to reschedule your surgeryI told them about your appointment on 09/17, and they will likely set up an appointment for surgery for you following this. We are glad you are feeling better. We know this is all overwhelming but I can tell you have great support to help you get through this. Print Language: Romansh Patient Instructions: Syncope Stand Alone Forms: PCP List Follow-up Care: Julissa Laguerre PA-C [Provider Admit Priv/Credential] - 09/17/24 9:15 am Rama Ball ARNP, MSN, VISUAL MERCHANDISING MANAGER [Primary Care Provider] - Carmen Mera MD [Physician No Access] - (Please call office and make follow up appointment for cardiac clearance prior to surgery. )
== END 2024-09-08 17:30 | disposition home or self-care (01) ==
LOC: EDBD → ED 04:00 → MS3 04:00
PROVIDERS: ADMIT Family Medicine Sports Medicine; ATTEND Family Medicine Sports Medicine
DX: R42 Dizziness and giddiness; F41.0 Panic disorder [episodic paroxysmal anxiety]; Z87.891 Personal history of nicotine dependence; E78.00 Pure hypercholesterolemia, unspecified; F41.1 Generalized anxiety disorder; I10 Essential (primary) hypertension; D22.5 Melanocytic nevi of trunk; R55 Syncope and collapse; R41.82 Altered mental status, unspecified; F90.9 Attention-deficit hyperactivity disorder, unspecified type; I95.9 Hypotension, unspecified; Z79.899 Other long term (current) drug therapy; Z82.41 Family history of sudden cardiac death; T43.626A Underdosing of amphetamines, initial encounter